=== PATIENT | male | born 1970 | race Caucasian/White ===

== ENCOUNTER 2017-11-07 09:29 | Inpatient (IN) ==
[2017-11-07] MEDS ORDERED: predniSONE 20 MG TABLET PO ONE (09:40)
[2017-11-07] MEDS ORDERED: Ipratropium/Albuterol Neb 3 ML IH ONE (09:40)
[2017-11-07 10:05] LABS: Hematocrit 43.2 % (37.5-50.1); Hemoglobin 14.2 g/dL (12.9-16.9); Mean Corpuscular HGB Conc 32.9 g/dL (31.6-35.5); Mean Corpuscular Hemoglobin 26.9 pg (28.0-33.3); Mean Corpuscular Volume 81.8 fL (83.0-100.0); Mean Platelet Volume 11.3 fL (9.4-12.4); Platelet Count 228 K/mcL (140-400); Red Blood Count 5.28 M/mcL (4.19-5.50); Red Cell Distribution Width 14.5 % (11.5-14.5)
[2017-11-07] MEDS ORDERED: Levofloxacin 750 MG/150 ML 750 MG/150 ML BAG IVPB STA (10:10)
[2017-11-07 10:29] LABS: BUN/Creatinine Ratio 14 (6-26); Blood Urea Nitrogen 16 mg/dL (6-20); Calcium 10.1 mg/dL (8.6-10.3); Carbon Dioxide 8 mEq/L (23-29); Chloride 97 mEq/L (98-107); Eosinophils # 0.3 K/mcL (0.0-0.6); Glucose 430 mg/dL (70-105); Lymphocytes # 1.7 K/mcL (0.6-4.6); Monocytes # 3.7 K/mcL (0.0-1.3); Neutrophils # 11.1 K/mcL (1.6-8.9); Osmolality,Calculated 284 (280-300); Potassium 4.5 mEq/L (3.5-5.1); Sodium 127 mEq/L (136-145); Troponin I < 0.03 ng/mL (< 0.04); eGFR For Non-African Americans > 60 (> 60)
[2017-11-07 10:30] LABS: Platelet Estimate Normal (Normal)
[2017-11-07] MEDS ORDERED: Isovue-370 500 ML INFUS..BTL IV ONE (10:37)
--- NOTE | 2017-11-07 10:41 | Emergency Department Note ---
Disposition Clinical Impression: Community acquired pneumonia Qualifiers: Laterality: unspecified laterality Qualified Code(s): J18.9 - Pneumonia, unspecified organism DKA (diabetic ketoacidoses) Qualifiers: Diabetes mellitus type: type 2 Diabetes mellitus complication detail: without coma Qualified Code(s): E11.10 - Type 2 diabetes mellitus with ketoacidosis without coma Disposition: Admitted As Inpatient Condition: Fair Referrals: NONE,PCP [Primary Care Provider] - Forms: ED Satisfaction Letter General Adult HPI - General Chief complaint: ED Shortness of Breath/Dyspnea Stated complaint: CHAYA Time Seen by Provider: 11/07/17 09:33 Source: patient Mode of arrival: ambulatory Limitations: no limitations Nursing Notes Reviewed: Yes Vital Signs Reviewed: Yes - History of Present Illness HPI Narrative: 47-year-old male with significant past medical history of diabetes currently on metformin presenting to the emergency department with chief complaint of shortness of breath and cough. Patient states for the past 3-5 days he has had worsening symptoms. He states he saw his primary care physician a few days ago who gave him an outpatient prescription for chest x-ray but he has been unable to go. He states his was recently diagnosed with pneumonia. He states he has had some shortness of breath, productive cough but denies any fevers, nausea or vomiting. Denies abdominal pain, diarrhea or constipation. Denies any chest pain. Denies any history of cardiac disease. He does state he was told he had a mass in the right lung previously and was diagnosed with sarcoidosis. He states he does not take any medications for this but does get routine scans every few years. Pain Scale: 7 - Related Data Home Medications Medication Instructions Recorded Confirmed Gabapentin [Neurontin] 400 mg PO TID 11/07/17 11/07/17 Metformin HCl [Metformin HCl] 500 mg PO BID 11/07/17 11/07/17 clonazePAM [Clonazepam] 1 mg PO BID 11/07/17 11/07/17 Allergies Allergy/AdvReac Type Severity Reaction Status Date / Time No Known Allergies Allergy Verified 11/07/17 09:33 All systems ED: reviewed and negative except as stated. Constitutional: Reports: as per HPI Eyes: Reports: as per HPI ENT ED: Reports: as per HPI Cardiovascular: Reports: dyspnea on exertion. Denies: chest pain, palpitations Respiratory: Reports: cough, dyspnea, wheezes Gastrointestinal: Denies: abdominal pain, vomiting Genitourinary: Reports: as per HPI Musculoskeletal: Reports: as per HPI Integumentary: Reports: as per HPI Neurological: Denies: weakness, numbness, paresthesias Psychiatric: Reports: as per HPI Endocrine: Reports: as per HPI Hematological/Lymphatic: Reports: as per HPI Allergic/Immunologic: Reports: as per HPI Past Medical History - Past Medical History Attestation: Yes The following information was validated with the patient. Medical history: Reports: diabetes Psychiatric history: Reports: no psych history - Social History Smoking Status: Never smoker Smokeless Tobacco Status: No Alcohol use: Reports: none Drug use: Reports: none Physical Exam - General Limitations: no limitations General appearance: alert, in no apparent distress - Head Head exam: atraumatic, normocephalic, normal inspection - Eye Eye exam: Present: normal appearance. Absent: scleral icterus, conjunctival injection - ENT ENT exam: mucous membranes dry - Neck Neck exam: Present: normal inspection, full ROM. Absent: tenderness, meningismus - Chest Chest inspection: Present: normal inspection, symmetric chest wall rise. Absent : tenderness, rash - Respiratory Respiratory exam: Present: other (Coarse breath sounds throughout, inspiratory and expiratory wheezing) - Cardiovascular Cardiovascular exam: Present: normal rhythm, tachycardia, normal heart sounds - Abdominal Exam Abdominal exam: Present: soft, Non-Tender. Absent: distention, guarding, rebound - Extremities Exam Extremities exam: Present: normal inspection, full ROM - Neurological Exam Neurological exam: Present: alert, oriented X3 - Psychiatric Psychiatric exam: Present: normal affect, normal mood - Skin Skin exam: Present: warm, intact Course Course Narrative: 47-year-old male presenting with shortness of breath and cough. diagnosed with pneumonia on Sunday. Patient is to get neck and tachycardic in the room. Otherwise hemodynamically stable. He is alert and oriented 3. Physical exam shows coarse breath sounds throughout with inspiratory next Ettore wheezing. Otherwise benign physical exam. At this time will work him up with concern for sepsis from pneumonia. Disposition will most likely be admission but pending results. Patient agrees with this plan. - Reevaluation(s) Reevaluation #1: Patient's initial laboratory analysis shows leukocytosis at 16.8 along with elevated glucose at 430 and decreased bicarbonate 8. Concern for possible DKA at this time. Ketone level and VBG added to determine if patient has acidosis and needs to be on insulin drip. Chest x-ray does show pneumonia but due to mass on the right side will plan to get a CT of the chest with contrast. Patient remains alert and oriented 3 in room with stable vital signs. Patient agrees with this plan. Reevaluation #2: Patient CT of the chest shows bilateral pneumonia. Patient given a dose of Levaquin in 2 L of normal saline. Patient's VBG shows pH of 7.1. Patient with diagnosis of DKA and bilateral pneumonia which is mainly acquired. Patient remains alert and oriented 3 in the room. Tachycardic but otherwise hemodynamically stable. At this time will plan to admit the patient on an insulin drip to a step down unit. We will also provide the patient with maintenance fluids with potassium. I spoke with the hospitalist sales operations coordinator Dr. Proctor who agrees to accept the patient at this time. Patient agrees with this plan. Vital Signs Temperature 97.4 F L 11/07/17 09:32 Pulse Rate 117 11/07/17 09:32 Respiratory Rate 22 11/07/17 09:32 Blood Pressure 110/54 11/07/17 09:32 O2 Sat by Pulse Oximetry 94 11/07/17 09:32 Temperature 99.3 F 11/07/17 09:56 Pulse Rate 107 11/07/17 12:01 Respiratory Rate 32 11/07/17 12:01 Blood Pressure 111/73 11/07/17 12:01 O2 Sat by Pulse Oximetry 97 11/07/17 12:01 Oxygen Delivery Oxygen Delivery Room Air Medical Decision Making - Lab Data Result diagrams: 11/07/17 09:40 11/07/17 09:40 Lab Results 11/07/17 11/07/17 11/07/17 Range/Units 09:40 09:40 09:54 WBC 16.8 H (4.3-11.1) K/mcL RBC 5.28 (4.19-5.50) M/mcL Hgb 14.2 (12.9-16.9) g/dL Hct 43.2 (37.5-50.1) % MCV 81.8 L (83.0-100.0) fL MCH 26.9 L (28.0-33.3) pg MCHC 32.9 (31.6-35.5) g/dL RDW 14.5 (11.5-14.5) % Plt Count 228 (140-400) K/mcL MPV 11.3 (9.4-12.4) fL Seg Neutrophils % 46.0 % Band Neutrophils % 20.0 H (0-4) % Lymphocytes % 10.0 % Monocytes % 22.0 % Eosinophils % 2.0 % Neutrophils # 11.1 H (1.6-8.9) K/mcL Lymphocytes # 1.7 (0.6-4.6) K/mcL Monocytes # 3.7 H (0.0-1.3) K/mcL Eosinophils # 0.3 (0.0-0.6) K/mcL Platelet Estimate Normal (Normal) VBG pH (7.32-7.42) pH Units VBG pCO2 (41-51) mmHg VBG pO2 (25-50) mmHg VBG HCO3 (21-27) mEq/L Sodium 127 L (136-145) mEq/L Potassium 4.5 (3.5-5.1) mEq/L Chloride 97 L (98-107) mEq/L Carbon Dioxide 8 L* (23-29) mEq/L BUN 16 (6-20) mg/dL Creatinine 1.16 (0.70-1.30) mg/dL Est GFR ( Amer) > 60 (> 60) Est GFR (Non-Af Amer) > 60 (> 60) BUN/Creatinine Ratio 14 (6-26) Glucose 430 H (70-105) mg/dL Est Mean Plasma Glucose mg/dl Hemoglobin A1c ( - 5.6) % Calculated Osmolality 284 (280-300) Lactic Acid 1.4 (0.5-2.2) mmol/L Calcium 10.1 (8.6-10.3) mg/dL Troponin I < 0.03 (< 0.04) ng/mL Beta-Hydroxybutyric Acd (0.02-0.27) mmol/L Person Notif of Crit 11/07/17 11/07/17 11/07/17 Range/Units 09:54 09:54 11:34 WBC (4.3-11.1) K/mcL RBC (4.19-5.50) M/mcL Hgb (12.9-16.9) g/dL Hct (37.5-50.1) % MCV (83.0-100.0) fL MCH (28.0-33.3) pg MCHC (31.6-35.5) g/dL RDW (11.5-14.5) % Plt Count (140-400) K/mcL MPV (9.4-12.4) fL Seg Neutrophils % % Band Neutrophils % (0-4) % Lymphocytes % % Monocytes % % Eosinophils % % Neutrophils # (1.6-8.9) K/mcL Lymphocytes # (0.6-4.6) K/mcL Monocytes # (0.0-1.3) K/mcL Eosinophils # (0.0-0.6) K/mcL Platelet Estimate (Normal) VBG pH 7.11 L* (7.32-7.42) pH Units VBG pCO2 25 L (41-51) mmHg VBG pO2 159 H (25-50) mmHg VBG HCO3 8 L (21-27) mEq/L Sodium (136-145) mEq/L Potassium (3.5-5.1) mEq/L Chloride (98-107) mEq/L Carbon Dioxide (23-29) mEq/L BUN (6-20) mg/dL Creatinine (0.70-1.30) mg/dL Est GFR ( Amer) (> 60) Est GFR (Non-Af Amer) (> 60) BUN/Creatinine Ratio (6-26) Glucose (70-105) mg/dL Est Mean Plasma Glucose 352 mg/dl Hemoglobin A1c 13.9 H ( - 5.6) % Calculated Osmolality (280-300) Lactic Acid (0.5-2.2) mmol/L Calcium (8.6-10.3) mg/dL Troponin I (< 0.04) ng/mL Beta-Hydroxybutyric Acd > 2.00 H (0.02-0.27) mmol/L Person Notif of Crit dr holland - EKG Data EKG #1 EKG attestation: Yes I reviewed and interpreted this EKG. EKG results narrative: Sinus tachycardia. 107 bpm. IL interval 189, QRS 98, QTC 419. No sign of acute ST segment elevation or ischemia. Attestation Statement - Attestation Attestation: I, Shar Oreilly DO, examined this patient [id number] and my medical decision-making was reviewed with Dr. Purnima Arnold, Resident Physician. I agree with the documented findings, disposition and treatment plan as described except to the extent set forth below. Please see my progress notes for details.
[2017-11-07] MEDS: 0.9 % Sodium Chloride 1,000 ML IVC SCH ×2 (10:50→11:57)
--- NOTE | 2017-11-07 10:51 | Emergency Department Note ---
Disposition Clinical Impression: Community acquired pneumonia Qualifiers: Laterality: unspecified laterality Qualified Code(s): J18.9 - Pneumonia, unspecified organism DKA (diabetic ketoacidoses) Qualifiers: Diabetes mellitus type: type 2 Diabetes mellitus complication detail: without coma Qualified Code(s): E11.10 - Type 2 diabetes mellitus with ketoacidosis without coma Disposition: Admitted As Inpatient Condition: Fair Time of Disposition: 13:18 General Adult HPI - General Chief complaint: ED Shortness of Breath/Dyspnea Stated complaint: CHAYA Time Seen by Provider: 11/07/17 09:33 Source: patient Mode of arrival: ambulatory Limitations: no limitations - History of Present Illness Pain Scale: 7 - Related Data Home Medications Medication Instructions Recorded Confirmed Gabapentin [Neurontin] 400 mg PO TID 11/07/17 11/07/17 Metformin HCl [Metformin HCl] 500 mg PO BID 11/07/17 11/07/17 clonazePAM [Clonazepam] 1 mg PO BID 11/07/17 11/07/17 Allergies Allergy/AdvReac Type Severity Reaction Status Date / Time No Known Allergies Allergy Verified 11/07/17 09:33 Constitutional: Reports: as per HPI Eyes: Reports: as per HPI ENT ED: Reports: as per HPI Cardiovascular: Reports: dyspnea on exertion. Denies: chest pain, palpitations Respiratory: Reports: cough, dyspnea, wheezes Gastrointestinal: Denies: abdominal pain, vomiting Genitourinary: Reports: as per HPI Musculoskeletal: Reports: as per HPI Integumentary: Reports: as per HPI Neurological: Denies: weakness, numbness, paresthesias Psychiatric: Reports: as per HPI Endocrine: Reports: as per HPI Hematological/Lymphatic: Reports: as per HPI Allergic/Immunologic: Reports: as per HPI Past Medical History - Past Medical History Medical history: Reports: diabetes Psychiatric history: Reports: no psych history - Social History Smoking Status: Never smoker Smokeless Tobacco Status: No Alcohol use: Reports: none Drug use: Reports: none Physical Exam - General Limitations: no limitations General appearance: alert, in no apparent distress Course Vital Signs Temperature 97.4 F L 11/07/17 09:32 Pulse Rate 117 11/07/17 09:32 Respiratory Rate 22 11/07/17 09:32 Blood Pressure 110/54 11/07/17 09:32 O2 Sat by Pulse Oximetry 94 11/07/17 09:32 Temperature 99.3 F 11/07/17 09:56 Pulse Rate 105 11/07/17 12:31 Respiratory Rate 32 11/07/17 12:31 Blood Pressure 127/85 11/07/17 12:31 O2 Sat by Pulse Oximetry 98 11/07/17 12:31 Oxygen Delivery Oxygen Delivery Room Air Medical Decision Making - Lab Data Result diagrams: 11/07/17 09:40 11/07/17 09:40 Lab Results 11/07/17 11/07/17 11/07/17 Range/Units 09:40 09:40 09:54 WBC 16.8 H (4.3-11.1) K/mcL RBC 5.28 (4.19-5.50) M/mcL Hgb 14.2 (12.9-16.9) g/dL Hct 43.2 (37.5-50.1) % MCV 81.8 L (83.0-100.0) fL MCH 26.9 L (28.0-33.3) pg MCHC 32.9 (31.6-35.5) g/dL RDW 14.5 (11.5-14.5) % Plt Count 228 (140-400) K/mcL MPV 11.3 (9.4-12.4) fL Seg Neutrophils % 46.0 % Band Neutrophils % 20.0 H (0-4) % Lymphocytes % 10.0 % Monocytes % 22.0 % Eosinophils % 2.0 % Neutrophils # 11.1 H (1.6-8.9) K/mcL Lymphocytes # 1.7 (0.6-4.6) K/mcL Monocytes # 3.7 H (0.0-1.3) K/mcL Eosinophils # 0.3 (0.0-0.6) K/mcL Platelet Estimate Normal (Normal) VBG pH (7.32-7.42) pH Units VBG pCO2 (41-51) mmHg VBG pO2 (25-50) mmHg VBG HCO3 (21-27) mEq/L Sodium 127 L (136-145) mEq/L Potassium 4.5 (3.5-5.1) mEq/L Chloride 97 L (98-107) mEq/L Carbon Dioxide 8 L* (23-29) mEq/L BUN 16 (6-20) mg/dL Creatinine 1.16 (0.70-1.30) mg/dL Est GFR ( Amer) > 60 (> 60) Est GFR (Non-Af Amer) > 60 (> 60) BUN/Creatinine Ratio 14 (6-26) Glucose 430 H (70-105) mg/dL Est Mean Plasma Glucose mg/dl Hemoglobin A1c ( - 5.6) % Calculated Osmolality 284 (280-300) Lactic Acid 1.4 (0.5-2.2) mmol/L Calcium 10.1 (8.6-10.3) mg/dL Troponin I < 0.03 (< 0.04) ng/mL Beta-Hydroxybutyric Acd (0.02-0.27) mmol/L Person Notif of Crit 11/07/17 11/07/17 11/07/17 Range/Units 09:54 09:54 11:34 WBC (4.3-11.1) K/mcL RBC (4.19-5.50) M/mcL Hgb (12.9-16.9) g/dL Hct (37.5-50.1) % MCV (83.0-100.0) fL MCH (28.0-33.3) pg MCHC (31.6-35.5) g/dL RDW (11.5-14.5) % Plt Count (140-400) K/mcL MPV (9.4-12.4) fL Seg Neutrophils % % Band Neutrophils % (0-4) % Lymphocytes % % Monocytes % % Eosinophils % % Neutrophils # (1.6-8.9) K/mcL Lymphocytes # (0.6-4.6) K/mcL Monocytes # (0.0-1.3) K/mcL Eosinophils # (0.0-0.6) K/mcL Platelet Estimate (Normal) VBG pH 7.11 L* (7.32-7.42) pH Units VBG pCO2 25 L (41-51) mmHg VBG pO2 159 H (25-50) mmHg VBG HCO3 8 L (21-27) mEq/L Sodium (136-145) mEq/L Potassium (3.5-5.1) mEq/L Chloride (98-107) mEq/L Carbon Dioxide (23-29) mEq/L BUN (6-20) mg/dL Creatinine (0.70-1.30) mg/dL Est GFR ( Amer) (> 60) Est GFR (Non-Af Amer) (> 60) BUN/Creatinine Ratio (6-26) Glucose (70-105) mg/dL Est Mean Plasma Glucose 352 mg/dl Hemoglobin A1c 13.9 H ( - 5.6) % Calculated Osmolality (280-300) Lactic Acid (0.5-2.2) mmol/L Calcium (8.6-10.3) mg/dL Troponin I (< 0.04) ng/mL Beta-Hydroxybutyric Acd > 2.00 H (0.02-0.27) mmol/L Person Notif of Crit dr corral Critical Care Time Critical Care Time: Yes Total Critical Care Time: 45 Attestation: Critical care performed: Time is exclusive of separately billable procedures. Time includes: direct patient care, patient reassessment, coordination of patient care, interpretation of data (laboratory data, radiology data, and respiratory data), review of patient's medical records, medical consultation and documentation of patient care. Procedures included in critical care time: Procedures excluded from critical care time: Attestation Statement - Attestation Attestation: I, Shar Oreilly DO, examined this patient [id number] and my medical decision-making was reviewed with Dr. Purnima Corral, Resident Physician. I agree with the documented findings, disposition and treatment plan as described except to the extent set forth below. Please see my progress notes for details. 47-year-old male presents to the emergency room with complaint of productive cough sputum and generalized malaise. Said that is why smokes around him and was diagnosed with pneumonia earlier this week. He has been progressively getting worse since Sunday of last week. He denies any fever or chills but he has had generalized malaise discomfort denies chest pain. He has had intermittent shortness of breath. Denies any nausea vomiting or diarrhea. The patient's only medical history that he describes this time his diabetes is controlled with metformin. On physical exam presentation the patient is tachycardic and tachypnea. His pulse ox is 95% on room air. His oropharynx is patent his mucous membranes are slightly dry his trachea is midline he has no stridor no trismus. His lungs have coarse crackles intermittently bilaterally. He also has intermittent wheezing on the left side. Heart is regular and tachycardic. Abdomen is soft nontender nondistended no guarding no rigidity no peritoneal symptoms. Patient has no rashes lesions or signs of trauma or injury otherwise noted. Patient is concerning for infectious etiology causing the symptoms here today with the recent sick contact as well as the productive cough and sputum. Fluid resuscitation will be started CBC chemistry troponin EKG and chest x-ray will be ordered. Disposition pending the full workup and treatment course. Patient otherwise is uncomfortable. He will be provided with breathing treatments and steroids in the disposition to be determined. See detailed documentation the physical exam, medical intervention, medical decision-making and disposition in the resident physician's note. No critical care provider the patient's treatment course at this time. 1035 Patient has an elevated glucose of greater than 400. His bicarbonate laboratory workup was 8. Patient is concerning for infection-induced diabetic ketoacidosis. Patient will have fluid resuscitation started this time and then will be evaluated with VBG and beta hydroxybutyric acid. His anion gap at this time is 22. We will continue monitoring her symptomatically control is established and disposition is determined. 1135 Patient has a significant acidosis at this time. Patient meets the criteria for diabetic ketoacidosis. 2 L of fluid enlargement provided. Insulin drip has been started. Patient will be informed of the findings. He does have bilateral interstitial disease consistent with pneumonia. 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 Patient will be admitted for what appears to be pneumonia-induced diabetic ketoacidosis. Type II diabetic. The hospitals will be placed for admission at this time. Patient otherwise does not show profound acidemia or altered mentation. 45 minutes of critical care applied the patient' s treatment course at this time.
[2017-11-07 11:25] LABS: Estimated Average Glucose 352 mg/dl; Hemoglobin A1C 13.9 %
[2017-11-07] MEDS ORDERED: *HR* Dextrose 50 % in Water (Syg) 50 ML SYRINGE IVP PRN ×2 (11:37→23:58)
[2017-11-07] MEDS ORDERED: Insulin Regular, Human 100 UNIT/ML IV PRN (11:37)
[2017-11-07 11:40] LABS: VBG HCO3 8 mEq/L (21-27); VBG PCO2 25 mmHg (41-51); VBG PH 7.11 pH Units (7.32-7.42); VBG PO2 159 mmHg (25-50)
[2017-11-07] MEDS ORDERED: Insulin Human Regular 100 UNIT in 0.9 % Sodium Chloride 100 ML IVC SCH (11:45)
[2017-11-07] MEDS ORDERED: Naloxone 0.4 MG/ML INJ IVP PRN (12:17)
[2017-11-07] MEDS: 0.45 % Sodium Chloride w/KCl 20 MEQ/1,000 ML MLS IVC SCH ×2 (12:26→14:37)
--- NOTE | 2017-11-07 13:00 | Internal Med History&Physical ---
Date of Encounter: 11/07/17 Time of Encounter: 12:45 Internal Medicine - H&P: HPI Chief complaint: Shortness of breath, pleuritic chest pain Admitted From: Emergency Dept Plans for Post Hospital Care: Home History of present illness: Mr. Mathew is a 47 year old male patient with a history of sarcoidosis, diabetes type 2 who presented to the ER with complaints of 2 day history of generalized weakness, pleuritic chest pain, shortness of breath and generalized malaise and weakness. He was seen by his primary care provider yesterday and recommended chest x-ray but he had to go to work and so she did not get it done. He was also provided with a prescription for azithromycin but he did not fill it. He continued to get sick so he decided to come to the ER today. He has been having increased urine output. He feels thirsty. Denies any palpitations. No abdominal pain, nausea or vomiting. He does have cough but no sputum production. He denies any fevers or chills. Patient is not on insulin at home and only takes oral anti-glycemic agents. Past Med Surg Social Fam HX - Past Medical History Attestation: Yes The following information was validated with the patient. Source: patient Medical history: diabetes Psychiatric history: no psych history - Social History Smoking Status: Never smoker Smokeless Tobacco Status: No Alcohol use: none Drug use: none - Additional Family History Additional family history: Family history reviewed and found to be noncontributory at this time Internal Medicine - H&P: Meds Gabapentin [Neurontin] 400 mg PO TID 11/07/17 [History] Metformin HCl [Metformin HCl] 500 mg PO BID 11/07/17 [History] clonazePAM [Clonazepam] 1 mg PO BID 11/07/17 [History] 3 Allergy/AdvReac Type Severity Reaction Status Date / Time No Known Allergies Allergy Verified 11/07/17 09:33 All Systems PM: A 10-system review of systems was performed and is negative for pertinent findings except as documented above in the HPI. - Constitutional Constitutional: fatigue, malaise, weakness, no chills, no fever(s), no night sweats - EENT Eyes: no change in vision, no discharge, no pain, no photophobia Ears: no ear discharge, no ear pain, no tinnitus Nose, mouth and throat: no dysphagia, no nasal discharge, no neck pain, no sore throat - Cardiovascular Cardiovascular ROS IM: chest pain, no diaphoresis, no dyspnea, no lightheadedness, no palpitations, no syncope - Respiratory Respiratory: cough, dyspnea, no wheezing, no excessive phlegm production - Gastrointestinal Gastrointestinal: no abdominal pain, no diarrhea, no hematemesis, no hematochezia, no melena, no nausea, no vomiting - Musculoskeletal Musculoskeletal ROS IM: no numbness, no tingling - Integumentary Integumentary IM: no rash, no unusual bruising - Neurological Neurological ROS: no confusion, no convulsions, no focal weakness, no numbness, no tingling, no tremor(s) - Endocrine Endocrine IM: polyuria - Hematologic/Lymphatic Hematologic/Lymphatic: no easy bruising - Constitutional Vitals: Temp Pulse Resp BP Pulse Ox 99.3 F 105 32 127/85 98 11/07/17 09:56 11/07/17 12:31 11/07/17 12:31 11/07/17 12:31 11/07/17 12:31 General appearance: Present: cooperative, disheveled, A&O X 3, obese, answers questions appropriately Exam: Moderate distress - Neck Neck exam general surgery: Present: supple, trachea midline. Absent: lymphadenopathy - Respiratory Respiratory exam: Present: prolonged expiratory phase, respiratory distress, wheezes, tachypnea. Absent: accessory muscle use, rales, rhonchi Additional comments: Coarse breath sounds bilaterally, rapid, shallow breaths - Cardiovascular Cardiovascular exam: Present: RRR, +S1, +S2. Absent: diastolic murmur, gallop, rubs, systolic murmur - Extremities Exam Extremities exam: Present: warm, radial pulses palpable and symmetrical. Absent : calf tenderness, cyanotic, pedal edema - Neurological Exam Neurological exam: Present: CN II-XII intact, oriented X3, no focal deficits. Absent: facial droop, speech deficit - Skin Skin exam: Present: dry, intact Internal Med - H&P Results - Labs CBC & Chem 7: 11/07/17 09:40 11/07/17 09:40 Labs: Short CBC 11/07/17 Range/Units 09:40 WBC 16.8 H (4.3-11.1) K/mcL Hgb 14.2 (12.9-16.9) g/dL Hct 43.2 (37.5-50.1) % Plt Count 228 (140-400) K/mcL Neutrophils # 11.1 H (1.6-8.9) K/mcL BMP 11/07/17 09:40 Sodium 127 L Potassium 4.5 Chloride 97 L Carbon Dioxide 8 L* BUN 16 Creatinine 1.16 Glucose 430 H Calcium 10.1 Cardiac Enzymes 11/07/17 Range/Units 09:40 Troponin I < 0.03 (< 0.04) ng/mL - ABG Interpretation ABG results: 11/07/17 11:34 VBG pH 7.11 L* VBG pCO2 25 L VBG pO2 159 H VBG HCO3 8 L - Impressions ITS Impressions Chest X-Ray 11/07/17 09:40 IMPRESSION: Lobulated contour of the right hilum suspicious for underlying mass or adenopathy. Recommend further evaluation with contrast-enhanced CT. Patchy airspace opacity in the right lung base which could reflect atelectasis or pneumonia. D/ / 11/07/2017 10:29:05 Maddison Cao MD / [facility] Interpreting Provider: Maddison Cao MD Chest CT 11/07/17 10:37 IMPRESSION: 1. Bilateral multifocal pneumonia. Recommend chest radiograph in 8 weeks to confirm resolution. 2. Mediastinal and right hilar reactive adenopathy. 3. Double aortic arch. D/ / Rufus Ojeda MD / Rufus Ojeda MD Interpreting Provider: Rufus Ojeda MD - Assessment and plan (1) DKA (diabetic ketoacidoses) Current Visit: Yes Status: Acute Assessment and plan: Patient with severe diabetic ketoacidosis. Likely brought on due to pneumonia. We will treat with insulin drip per DKA protocol. Monitor basic panel closely. IV hydration. High risk for complications. Qualifiers: Diabetes mellitus type: type 2 Diabetes mellitus complication detail: without coma Qualified Code(s): E11.10 - Type 2 diabetes mellitus with ketoacidosis without coma (2) Pneumonia Current Visit: Yes Status: Suspected Assessment and plan: Patient has leukocytosis, cough and CT scan findings suggestive of multifocal pneumonia. We will treat with Levaquin. Check streptococcal and legionella antigens. Follow blood cultures. If patient begins to make sputum, we will also send sputum for culture. Qualifiers: Pneumonia type: due to Pneumococcus Laterality: bilateral Lung location: lower lobe of lung Qualified Code(s): J13 - Pneumonia due to Streptococcus pneumoniae (3) Sepsis Current Visit: Yes Status: Suspected Assessment and plan: Patient has sepsis with tachycardia, tachypnea and leukocytosis. Most likely from pneumonia and DKA.management as above Qualifiers: Sepsis type: Pneumococcus Qualified Code(s): A40.3 - Sepsis due to Streptococcus pneumoniae - Time Spent With Patient Total time spent is greater than 50% in coordination of care (as documented) at patient's floor/unit and/or counseling patient:
[2017-11-07] MEDS ORDERED: Ipratropium/Albuterol Neb 3 ML IH PRN (13:07)
[2017-11-07] MEDS: Gabapentin 400 MG CAPSULE PO SCH ×2 (14:40→20:12)
[2017-11-07] MEDS: 0.9 % Sodium Chloride w KCl 20 MEQ/1,000 ML MLS IVC SCH ×2 (14:46→17:03)
[2017-11-07 15:17] LABS: BUN/Creatinine Ratio 14 (6-26); Blood Urea Nitrogen 14 mg/dL (6-20); Calcium 9.7 mg/dL (8.6-10.3); Carbon Dioxide 15 mEq/L (23-29); Chloride 104 mEq/L (98-107); Glucose 264 mg/dL (70-105); Osmolality,Calculated 286 (280-300); Potassium 4.5 mEq/L (3.5-5.1); Sodium 133 mEq/L (136-145); eGFR For Non-African Americans > 60 (> 60)
[2017-11-07] MEDS: *HR* OxyCODONE/APAP 5/325 TABLET PO PRN (15:18)
[2017-11-07] MEDS: *HR* Heparin 5,000 UNIT/ML VIAL SQ SCH (18:21)
[2017-11-07] MEDS: D5% in 0.45% NACL w KCl 20 MEQ/1,000 ML MLS IVC PRN ×2 (19:07→23:13)
[2017-11-07] MEDS: Insulin Human Regular 100 UNIT in 0.9 % Sodium Chloride 100 ML IVC SCH ×2 (19:08→21:07)
[2017-11-07 19:37] LABS: BUN/Creatinine Ratio 11 (6-26); Blood Urea Nitrogen 10 mg/dL (6-20); Calcium 9.5 mg/dL (8.6-10.3); Carbon Dioxide 15 mEq/L (23-29); Chloride 109 mEq/L (98-107); Glucose 138 mg/dL (70-105); Osmolality,Calculated 283 (280-300); Sodium 136 mEq/L (136-145); eGFR For Non-African Americans > 60 (> 60)
[2017-11-07] MEDS: clonazePAM 1 MG TABLET PO SCH (20:12)
[2017-11-07 23:12] LABS: VBG HCO3 17 mEq/L (21-27); VBG PCO2 32 mmHg (41-51); VBG PH 7.33 pH Units (7.32-7.42); VBG PO2 172 mmHg (25-50)
[2017-11-07 23:22] LABS: BUN/Creatinine Ratio 11 (6-26); Blood Urea Nitrogen 8 mg/dL (6-20); Calcium 9.5 mg/dL (8.6-10.3); Carbon Dioxide 14 mEq/L (23-29); Chloride 110 mEq/L (98-107); Glucose 110 mg/dL (70-105); Osmolality,Calculated 279 (280-300); Potassium 3.7 mEq/L (3.5-5.1); Sodium 135 mEq/L (136-145); eGFR For Non-African Americans > 60 (> 60)
[2017-11-07] MEDS ORDERED: Insulin DETEMIR 100 UNIT/ML X5UNITS SQ SCH (23:45)
[2017-11-07] MEDS ORDERED: Dextrose Gel 15 GM/37.5 ML TUBE PO PRN ×2 (23:58)
[2017-11-07] MEDS ORDERED: D5% in Water 1,000 ML IVC PRN (23:58)
[2017-11-08 04:37] LABS: Mean Corpuscular HGB Conc 33.9 g/dL (31.6-35.5); Mean Corpuscular Hemoglobin 27.7 pg (28.0-33.3); Mean Corpuscular Volume 81.8 fL (83.0-100.0); Mean Platelet Volume 10.7 fL (9.4-12.4); Platelet Count 202 K/mcL (140-400)
[2017-11-08 04:51] LABS: Hemoglobin 12.2 g/dL (12.9-16.9)
[2017-11-08 05:07] LABS: BUN/Creatinine Ratio 12 (6-26); Blood Urea Nitrogen 10 mg/dL (6-20); Calcium 9.5 mg/dL (8.6-10.3); Carbon Dioxide 12 mEq/L (23-29); Chloride 106 mEq/L (98-107); Glucose 329 mg/dL (70-105); Osmolality,Calculated 286 (280-300); Potassium 4.8 mEq/L (3.5-5.1); Sodium 132 mEq/L (136-145); eGFR For Non-African Americans > 60 (> 60)
[2017-11-08 05:28] LABS: Lymphocytes # 2.5 K/mcL (0.6-4.6); Monocytes # 1.1 K/mcL (0.0-1.3); Neutrophils # 10.2 K/mcL (1.6-8.9); Platelet Estimate Normal (Normal)
[2017-11-08] MEDS: *HR* Heparin 5,000 UNIT/ML VIAL SQ SCH ×2 (05:47→17:27)
[2017-11-08] MEDS: Gabapentin 400 MG CAPSULE PO SCH ×3 (08:34→20:13)
[2017-11-08] MEDS: clonazePAM 1 MG TABLET PO SCH ×2 (08:34→20:13)
[2017-11-08] MEDS: Insulin LISPRO 300 UNITS/3 ML VIAL SQ SCH ×6 (08:34→17:28)
--- NOTE | 2017-11-08 08:55 | Electrocardiograph Report ---
[facility] Test Date: 2017-11-07 Pat Name: Silvio Mathew Department: EXAM10 Room: 2N07 Gender: M Pharmacy Clerk: : 1970 Requested By: Purnima Corral Order Number: [id number] Reading MD: Peter Rome Measurements Intervals [place] Rate: 107 P: 83 HI: 189 QRS: 84 QRSD: 98 T: -9 QT: 314 QTc: 419 Interpretive Statements Sinus tachycardia Consider left atrial enlargement Borderline T wave abnormalities ST elevation, consider inferior injury Electronically Signed On 11-08-2017 8:53:36 EDT by Peter Rome
[2017-11-08] MEDS ORDERED: Levofloxacin 750 MG/150 ML 750 MG/150 ML BAG IVPB SCH (09:00)
--- NOTE | 2017-11-08 09:00 | Internal Med Progress Note ---
Hospitalist Progress Note - Encounter Date of Encounter: 11/08/17 Time of Encounter: 09:04 - Subjective Interval History: Patient is here for sepsis and DKA secondary to pneumonia. Treated with Levaquin. This AM he is having shortness of breath and cough with thick yellow sputum, slight improvement but still feels malaise. Denies fever/chills. - Exam Vitals: Temp Pulse Resp BP Pulse Ox 98.4 F 93 18 126/87 95 11/08/17 07:48 11/08/17 07:48 11/08/17 07:48 11/08/17 07:48 11/08/17 07:48 Exam: Gen: NAD, AAO x3, converses without any dyspnea CVS: RRR Lungs: CTAB abd: soft, NT/ND Ext: no cyanosis, no edema - Assessment and Plan (1) DKA (diabetic ketoacidoses) Current Visit: Yes Status: Acute Assessment and Plan: Patient with severe diabetic ketoacidosis. Likely brought on due to pneumonia. Likely non-compliance too as his A1C is 13.9% Initially treated We will treat with insulin drip per DKA protocol. Monitor basic panel closely. IV hydration as needed. High risk for complications. (2) Pneumonia Current Visit: Yes Status: Suspected Assessment and Plan: Patient has leukocytosis, cough and CT scan findings suggestive of multifocal pneumonia. We will treat with Levaquin. Check streptococcal and legionella antigens. Follow blood cultures. If patient begins to make sputum, we will also send sputum for culture. 11/08: will start Rocephin and azithro. Obtain sputum cultures, follow-up blood cultures. (3) Sepsis Current Visit: Yes Status: Suspected Assessment and Plan: Patient has sepsis with tachycardia, tachypnea and leukocytosis. Most likely from pneumonia and DKA.management as above 11/08: improved WBC, T max overnight still febrile with 100.9 F, with some tachycardia. Follow up BCx, continue antibiotics, sputum cultures, procalcitonin DVT Prophylaxis: Heparin SQ - Time Spent with Patient Total time spent is greater than 50% in coordination of care (as documented) at patient's floor/unit and/or counseling patient: Internal Medicine: Result - Labs CBC & Chem 7: 11/08/17 04:17 11/08/17 04:17 Labs: Short CBC 11/08/17 Range/Units 04:17 WBC 13.8 H (4.3-11.1) K/mcL Hgb 12.2 L D (12.9-16.9) g/dL Hct 36.0 L (37.5-50.1) % Plt Count 202 (140-400) K/mcL Neutrophils # 10.2 H (1.6-8.9) K/mcL BMP 11/07/17 11/07/17 11/08/17 19:01 22:46 04:17 Sodium 136 135 L 132 L Potassium 4.0 3.7 4.8 D Chloride 109 H 110 H 106 Carbon Dioxide 15 L 14 L 12 L BUN 10 8 10 Creatinine 0.90 0.71 0.82 Glucose 138 H 110 H 329 H Calcium 9.5 9.5 9.5 Consult Discharge Plan - Plan Referrals: NONE,PCP [Primary Care Provider] - (1) DKA (diabetic ketoacidoses) Qualifiers: Diabetes mellitus type: type 2 Diabetes mellitus complication detail: without coma Qualified Code(s): E11.10 - Type 2 diabetes mellitus with ketoacidosis without coma (2) Pneumonia Qualifiers: Pneumonia type: due to Pneumococcus Laterality: bilateral Lung location: lower lobe of lung Qualified Code(s): J13 - Pneumonia due to Streptococcus pneumoniae (3) Sepsis Qualifiers: Sepsis type: Pneumococcus Qualified Code(s): A40.3 - Sepsis due to Streptococcus pneumoniae
[2017-11-08] MEDS: Ipratropium/Albuterol Neb 3 ML IH SCH ×4 (10:59→23:31)
[2017-11-08] MEDS: cefTRIAXone 2,000 MG in Water for inj. (sterile) 20 ML 20 ML IVP SCH (11:27)
[2017-11-08] MEDS: predniSONE 20 MG TABLET PO SCH (11:27)
[2017-11-08] MEDS: Azithromycin 500 MG in D5% in Water 250 ML IVPB SCH (11:27)
[2017-11-08] MEDS: *HR* OxyCODONE/APAP 5/325 TABLET PO PRN (20:12)
[2017-11-08] MEDS ORDERED: Insulin LISPRO 300 UNITS/3 ML VIAL SQ SCH (21:00)
[2017-11-08] MEDS ORDERED: Insulin DETEMIR 100 UNIT/ML X5UNITS SQ SCH (21:00)
[2017-11-09] MEDS: Ipratropium/Albuterol Neb 3 ML IH SCH ×6 (04:33→23:32)
[2017-11-09 05:47] LABS: BUN/Creatinine Ratio 23 (6-26); Blood Urea Nitrogen 17 mg/dL (6-20); Carbon Dioxide 19 mEq/L (23-29); Chloride 104 mEq/L (98-107); Glucose 339 mg/dL (70-105); Osmolality,Calculated 293 (280-300); Potassium 3.8 mEq/L (3.5-5.1); Sodium 134 mEq/L (136-145); eGFR For Non-African Americans > 60 (> 60)
[2017-11-09] MEDS: *HR* Heparin 5,000 UNIT/ML VIAL SQ SCH ×2 (06:19→16:42)
[2017-11-09] MEDS: clonazePAM 1 MG TABLET PO SCH ×2 (08:08→21:54)
[2017-11-09] MEDS: Gabapentin 400 MG CAPSULE PO SCH ×3 (08:08→21:54)
[2017-11-09] MEDS: predniSONE 20 MG TABLET PO SCH (08:08)
[2017-11-09] MEDS: Insulin LISPRO 300 UNITS/3 ML VIAL SQ SCH ×6 (08:09→16:44)
[2017-11-09] MEDS: Azithromycin 500 MG in D5% in Water 250 ML IVPB SCH (08:20)
[2017-11-09] MEDS: cefTRIAXone 2,000 MG in Water for inj. (sterile) 20 ML 20 ML IVP SCH (08:21)
[2017-11-09] MEDS ORDERED: Insulin LISPRO 300 UNITS/3 ML VIAL SQ SCH ×2 (08:30→16:54)
[2017-11-09] MEDS: *HR* OxyCODONE/APAP 5/325 TABLET PO PRN ×4 (08:35→21:58)
--- NOTE | 2017-11-09 11:51 | Internal Med Progress Note ---
Hospitalist Progress Note - Encounter Date of Encounter: 11/09/17 Time of Encounter: 11:49 - Subjective Interval History: 47 M type II diabetic admitted in DKA and sepsis from pneumonia He was receiving a breathing treatment at time of evaluation. He has no new complaints otherwise. Finger sticks remain uncontrolled. FS between 300 and 350 - Exam Vitals: Temp Pulse Resp BP Pulse Ox 98.2 F 70 19 127/85 90 11/09/17 11:36 11/09/17 11:36 11/09/17 11:36 11/09/17 11:36 11/09/17 11:36 Exam: Gen: Laying flat in bed, in no form of distress, morbidly obese HEENT: Moist oral mucosa, not cyanotic Chest: CTAV CVS: HR and BP WNL, S1, S2 only, no m/g/r Abdomen: Flat, soft, not tender, no palpably enlarged organs Extremities: No pedal edema - Assessment and Plan (1) DKA (diabetic ketoacidoses) Current Visit: Yes Status: Acute Assessment and Plan: Resolved Patient with severe diabetic ketoacidosis. Likely brought on due to pneumonia. Likely non-compliance too as his A1C is 13.9% Initially treated We will treat with insulin drip per DKA protocol. Now on SQ insulin, continue to titrate with FS FS ACHS ADA diet Continue to monitor (2) Pneumonia Current Visit: Yes Status: Acute Assessment and Plan: Patient has leukocytosis, cough and CT scan findings suggestive of multifocal pneumonia. Tobacco: Legionella antigen remains negative Continue ceftriaxone and azithromycin. DAy 3/5 Continue breathing treatments (3) Sepsis Current Visit: Yes Status: Resolved Assessment and Plan: Patient has sepsis with tachycardia, tachypnea and leukocytosis. Most likely from pneumonia and DKA.management as above 11/08: improved WBC, T max overnight still febrile with 100.9 F, with some tachycardia. procalcitonin requested and is pending, blood culture negative. Day 2/5 of Rocephin and azithromycin. Consult 3 to antibiotics as patient received Levaquin on the day of admission. Continue current management. (4) Obesity (BMI 35.0-39.9 without comorbidity) Current Visit: Yes Status: Chronic Assessment and Plan: Encouraged lifestyle modification. - Time Spent with Patient Total time spent is greater than 50% in coordination of care (as documented) at patient's floor/unit and/or counseling patient: Plan of Care Discussed with: patient Internal Medicine: Result - Labs CBC & Chem 7: 11/08/17 04:17 11/09/17 04:06 Labs: BMP 11/09/17 04:06 Sodium 134 L Potassium 3.8 Chloride 104 Carbon Dioxide 19 L BUN 17 Creatinine 0.73 Glucose 339 H Calcium 10.0 Consult Discharge Plan - Plan Referrals: Carson Zamora [Non-Partnered Physician] - 11/15/17 12:20 pm () (1) DKA (diabetic ketoacidoses) Qualifiers: Diabetes mellitus type: type 2 Diabetes mellitus complication detail: without coma Qualified Code(s): E11.10 - Type 2 diabetes mellitus with ketoacidosis without coma (2) Pneumonia Qualifiers: Pneumonia type: due to Pneumococcus Laterality: bilateral Lung location: lower lobe of lung Qualified Code(s): J13 - Pneumonia due to Streptococcus pneumoniae (3) Sepsis Qualifiers: Sepsis type: Pneumococcus Qualified Code(s): A40.3 - Sepsis due to Streptococcus pneumoniae
[2017-11-09] MEDS ORDERED: Albuterol 2.5 MG/3 ML NEBULIZER IH PRN (14:24)
[2017-11-09] MEDS ORDERED: Insulin LISPRO 300 UNITS/3 ML VIAL SQ STA (16:52)
[2017-11-09] MEDS ORDERED: Insulin DETEMIR 100 UNIT/ML X5UNITS SQ SCH (21:00)
[2017-11-09] MEDS ORDERED: Insulin LISPRO 300 UNITS/3 ML VIAL SQ ONE (23:13)
[2017-11-10] MEDS: Ipratropium/Albuterol Neb 3 ML IH SCH ×2 (04:15→08:06)
[2017-11-10 04:45] LABS: Basophils % 0.4 %; Eosinophils % 0.2 %; Hematocrit 33.9 % (37.5-50.1); Hemoglobin 11.2 g/dL (12.9-16.9); Immature Granulocytes % 4.6 % (0-4); Lymphocytes # 2.5 K/mcL (0.6-4.6); Lymphocytes % 23.9 %; Mean Corpuscular Volume 81.7 fL (83.0-100.0); Mean Platelet Volume 10.9 fL (9.4-12.4); Monocytes # 0.5 K/mcL (0.0-1.3); Monocytes % 4.5 %; Platelet Count 222 K/mcL (140-400); Red Blood Count 4.15 M/mcL (4.19-5.50); Red Cell Distribution Width 14.5 % (11.5-14.5); Segmented Neutrophils % 66.4 %
[2017-11-10 04:47] LABS: Neutrophils # 6.8 K/mcL (1.6-8.9)
[2017-11-10 05:05] LABS: BUN/Creatinine Ratio 22 (6-26); Blood Urea Nitrogen 16 mg/dL (6-20); Calcium 9.6 mg/dL (8.6-10.3); Carbon Dioxide 25 mEq/L (23-29); Chloride 103 mEq/L (98-107); Glucose 378 mg/dL (70-105); Osmolality,Calculated 301 (280-300); Potassium 3.5 mEq/L (3.5-5.1); Sodium 137 mEq/L (136-145); eGFR For Non-African Americans > 60 (> 60)
[2017-11-10 05:10] LABS: Platelet Estimate Normal (Normal)
[2017-11-10] MEDS: *HR* Heparin 5,000 UNIT/ML VIAL SQ SCH (06:54)
[2017-11-10 07:35] VITALS: BP 105/83
[2017-11-10] MEDS: clonazePAM 1 MG TABLET PO SCH (08:18)
[2017-11-10] MEDS: cefTRIAXone 2,000 MG in Water for inj. (sterile) 20 ML 20 ML IVP SCH (08:18)
[2017-11-10] MEDS: Gabapentin 400 MG CAPSULE PO SCH (08:18)
[2017-11-10] MEDS: Insulin LISPRO 300 UNITS/3 ML VIAL SQ SCH ×4 (08:19→11:18)
[2017-11-10] MEDS ORDERED: Azithromycin 250 MG TABLET PO SCH (09:00)
[2017-11-10] MEDS ORDERED: predniSONE 10 MG TABLET PO SCH (09:00)
--- NOTE | 2017-11-10 10:05 | Discharge Summary ---
- NOTES TO OUTPATIENT PROVIDER Notes to Outpatient Provider: 47 YO M with DM, neuropathy, HTN, who was admitted for management of DKA, He had pesented in DKA and was also found to have COPDE and PNA. he has made significant improvement but hs blood sugars are still >350, 398 this a.m. He is AAOX3, and has refused further titration of insulin, he was not taking an insulin 3 months prior to admission because he believed it made him gain weight. He is asking to leave AMA on current medications. He has an appointmenr with his PCP 11/15/2017, he wishes to be followed up at this facility, but I did inform him, he may not get to be seen as soon as his current PCP and he can follow with his PCP while making arrangements to switch PCPs. He ciera glucometers needles, lancets and strips at home, he stated he can monitor his blood sugars and promises compliance. He is discharged on current doses of insulin, one more day of steroids and 3 more days of Omnicef for PNA as well as 2 more days of zithromax,. Diabetic educatin again provided, follow up with PCP. Orders not resulted at time of discharge: Pending orders 11/09/17 06:36 Procalcitonin Routine 11/11/17 04:00 Basic Metabolic Panel AM 0400 11/12/17 04:00 Basic Metabolic Panel AM 0400 Date of Encounter: 11/10/17 Time of Encounter: 10:04 - Discharge Diagnosis (1) DKA (diabetic ketoacidoses) Priority: Primary Status: Resolved Qualifiers: Diabetes mellitus type: type 2 Diabetes mellitus complication detail: without coma Qualified Code(s): E11.10 - Type 2 diabetes mellitus with ketoacidosis without coma (2) Pneumonia Priority: Primary Status: Acute Qualifiers: Pneumonia type: due to Pneumococcus Laterality: bilateral Lung location: lower lobe of lung Qualified Code(s): J13 - Pneumonia due to Streptococcus pneumoniae (3) Sepsis Priority: Primary Status: Resolved Qualifiers: Sepsis type: Pneumococcus Qualified Code(s): A40.3 - Sepsis due to Streptococcus pneumoniae (4) Obesity (BMI 35.0-39.9 without comorbidity) Priority: Secondary Status: Chronic Hospital course: Mr. Mathew is a 47 year old male 47 YO M with DM, neuropathy, HTN, who was admitted for management of DKA, He had pesented in DKA and was also found to have COPDE and PNA. he has made significant improvement but hs blood sugars are still >350, 398 this a.m. He is AAOX3, and has refused further titration of insulin, he was not taking an insulin 3 months prior to admission because he believed it made him gain weight. He is asking to leave AMA on current medications. He has an appointmenr with his PCP 11/15/2017, he wishes to be followed up at this facility, but I did inform him, he may not get to be seen as soon as his current PCP and he can follow with his PCP while making arrangements to switch PCPs. He ciera glucometers needles, lancets and strips at home, he stated he can monitor his blood sugars and promises compliance. He is discharged on current doses of insulin, one more day of steroids and 3 more days of Omnicef for PNA as well as 2 more days of zithromax, Diabetic educatin again provided, follow up with PCP. Discharge discussed with: patient, nurse - Time Spent with Patient Total time spent providing and/or coordinating discharge services: Less than 30 minutes - Discharge Medications Prescriptions: Azithromycin [Zithromax] 500 mg PO DAILY #2 tablet Insulin DETEMIR [Levemir] 50 unit SQ HS #2 vial Insulin LISPRO [HumaLOG] 10 units SQ TIDWM #1 vial predniSONE [PredniSONE] 30 mg PO DAILY 2 Days #6 tablet Home Medications: Gabapentin [Neurontin] 400 mg PO TID 11/07/17 [History] clonazePAM [Clonazepam] 1 mg PO BID 11/07/17 [History] Azithromycin [Zithromax] 500 mg PO DAILY #2 tablet 11/10/17 [Rx] Insulin DETEMIR [Levemir] 50 unit SQ HS #2 vial 11/10/17 [Rx] Insulin LISPRO [HumaLOG] 10 units SQ TIDWM #1 vial 11/10/17 [Rx] predniSONE [PredniSONE] 30 mg PO DAILY 2 Days #6 tablet 11/10/17 [Rx] Allergies/Adverse Reactions: 3 Allergy/AdvReac Type Severity Reaction Status Date / Time No Known Allergies Allergy Verified 11/07/17 09:33 Date of admission: 11/07/17 14:36 Primary care physician: PCP NONE Discharging clinician: Rolf Olmstead Anticipated date of discharge: 11/10/17 - Constitutional Vitals: Temp Pulse Resp BP Pulse Ox 97.2 F L 61 16 105/83 96 11/10/17 07:31 11/10/17 07:31 11/10/17 08:06 11/10/17 07:31 11/10/17 08:06 General appearance: Present: cooperative, A&O X 3, morbidly obese, obese, answers questions appropriately Exam: see below - Head Head exam: Present: atraumatic, normocephalic - Eye Eye exam: Present: PERRL, conjuntiva pink, sclera anicteric Pupils: Present: PERRL - Neck Neck exam general surgery: Present: supple, trachea midline. Absent: lymphadenopathy - Respiratory Respiratory exam: Present: CTAB. Absent: accessory muscle use, rales, rhonchi, wheezes - Cardiovascular Cardiovascular exam: Present: RRR, +S1, +S2. Absent: diastolic murmur, gallop, rubs, systolic murmur - GI/Abdominal GI/Abdominal exam: Present: normal bowel sounds, soft, no peritoneal signs. Absent: distended, tenderness - Extremities Exam Extremities exam: Present: warm, radial pulses palpable and symmetrical. Absent : calf tenderness, cyanotic, pedal edema - Neurological Exam Neurological exam: Present: CN II-XII intact, oriented X3, no focal deficits. Absent: pronater drift, facial droop, speech deficit - Skin Skin exam: Present: dry, intact - Patient Status Disposition: Left Against Medical Advice Condition: Good Functional capacity at discharge: independent ambulation Overall status at discharge: patient is progressing back to baseline - Discharge Instructions Follow Up With: Carson Zamora [Non-Partnered Physician] - 11/15/17 12:20 pm () - Diet and Activity Activity: resume usual activities as tolerated Diet: diabetic diet
== END 2017-11-10 11:39 | disposition left against medical advice (07) | DRG 871 ==
LOC: EMEROOARM 09:29 → 3ANU 09:29 → 2NNU 13:06 → SUATTDRO 14:36
PROVIDERS: ADMIT Internal Medicine; ATTEND Internal Medicine